=== PATIENT | male | born 1950 | race Caucasian/White ===

== ENCOUNTER → 2018-09-26 | Outpatient (CLI) | payer BC ==
[~2018-09-26] MED LIST: IOPAMIDOL 370 MG/ML 200 ML INFUS..BTL INJ ONE; SODIUM CHLORIDE 0.9% 50ML 50 ML ONE
[2018-09-26 14:09] LABS: BLOOD UREA NITROGEN 16 mg/dL (7-26); BUN/CREATININE RATIO 16 (6-25); CREATININE, SERUM 1.02 mg/dL (0.72-1.25); EST GLOMERULAR FILTRATION RATE > 60 ML/MIN (60-)
--- NOTE | 2018-09-26 15:03 | Diagnostic Imaging Report ---
EXAMINATION: CT of the chest with contrast, PE protocol. TECHNIQUE: Spiral CT images of the chest were performed from the lung apices through the level of the adrenal glands after the IV administration of 100 cc of [id number]. Thin section reconstructions were obtained with special concentration on the pulmonary arteries. COMPARISON: <none> CLINICAL HISTORY:Patient reports history of pulmonary embolus approximately 10 years prior, chest pain DISCUSSION: Vasculature: The main pulmonary artery, right and left pulmonary arteries, and their visualized lobar and segmental branches are patent, without filling defect. The pulmonary outflow tract is of normal caliber. There is no ectasia or aneurysmal dilatation of the thoracic aorta. Atherosclerotic calcifications of the left anterior descending coronary artery. Lungs: Calcified granuloma left upper lobe. Coarse juxtapleural linear and reticular opacities with cystic changes affecting the left upper lobe to the greatest extent. Associated groundglass opacities. 3 mm noncalcified solid nodule left lower lobe series 3 image 68. Trachea, mainstem bronchi, and central lobar and segmental bronchi are patent. Airways: As above. Pleura: <There is no evidence of pleural effusion or pneumothorax.> Heart and mediastinum: Visualized portions of the thyroid gland appear normal. No pericardial effusion. Calcified left hilar lymph nodes. Normal heart size. No axillary, hilar, or mediastinal lymphadenopathy. Abdomen: Visualized portions of the liver, spleen, pancreas, and adrenal glands are normal. Bones and soft tissues: Multilevel degenerative disc changes of the partially visualized lower cervical and thoracic spine. No osseous destructive lesions. Bilateral gynecomastia. IMPRESSION: No pulmonary embolus to the level of the segmental branch pulmonary arteries. Pulmonary findings most suggestive of nonspecific interstitial pneumonia (NSIP), which may be idiopathic, related to underlying collagen vascular disease, or drug toxicity. Evidence of prior granulomatous disease. 3 mm noncalcified left lower lobe nodule is likely a noncalcified granuloma though a follow-up CT scan of the chest in one year is suggested to document stability. Atherosclerotic vascular disease. Signed by: Dr. Lex Arias M.D. on 09/26/2018 2:59 PM
== END ==
LOC: CT 12:50
PROVIDERS: ATTEND Internal Medicine Interventional Cardiology
DX: R07.9 Chest pain, unspecified (principal); I70.8 Atherosclerosis of other arteries; Z86.711 Personal history of pulmonary embolism
CPT/HCPCS: 36415; 71260; 82565; 84520; Q9967

== ENCOUNTER → 2020-07-21 | Day surgery (SDC) | payer OTHER ==
[2020-07-21] VITALS (14 sets, daily range): BP systolic 77–144; BP diastolic 55–92
[~2020-07-21] MED LIST changes: +ALPRAZOLAM 0.5 MG TAB ONE; +BENICAR20 MG PO; +DIPHENHYDRAMINE HCL 25 MG CAP ONE; +FENTANYL CITRATE/PF 100MCG/2 ML INJ ONE; +HEPARIN SOD/SOD CHLORIDE 2,000 ML ONE; +HYDROCHLOROTHIA25 MG PO; +LIDOCAINE HCL 2% LOCAL 20 ML VIAL ONE; +MIDAZOLAM HCL 2 MG/2 ML VIAL ONE; +SODIUM CHLORIDE 0.9% 1000ML 1,000 ML ONE; -SODIUM CHLORIDE 0.9% 50ML 50 ML ONE; +SYMBICORT 16010.2 GM INH; +VERAPAMIL HCL 2.5 MG/ML 2 ML VIAL ONE; +XANAX0.5 MG PO; +XARELTO10 MG PO
[2020-07-21 12:33] LABS: BASOPHILS # (AUTO) 0.1 (0.0-0.1); EOSINOPHILS # (AUTO) 0.2 (0.0-0.4); EOSINOPHILS % 2.4 % (0.0-6.0); HEMATOCRIT 45.5 % (38.2-49.6); HEMOGLOBIN 14.7 g/dL (14.0-18.0); LYMPHOCYTES # (AUTO) 1.4 (1.0-3.2); LYMPHOCYTES % 18.5 % (18.0-39.1); MEAN CORPUSCULAR HEMOGLOBIN 31.1 pg (28-32); MEAN CORPUSCULAR HGB CONC 32.3 g/dL (31-35); MEAN CORPUSCULAR VOLUME 96.4 fL (81-99); MONOCYTES # (AUTO) 0.7 (0.2-0.8); MONOCYTES % 9.4 % (4.4-11.3); NEUTROPHILS % 68.4 % (38.7-80.0); PLATELET COUNT 274 x10e3/uL (140-360); RED BLOOD COUNT 4.72 x10e6/uL (4.3-5.7); RED CELL DISTRIBUTION WIDTH 13.5 % (11.7-14.4)
[2020-07-21 12:58] LABS: ALANINE AMINOTRANSFERASE 19 IU/L (0-55); ALBUMIN 3.7 g/dL (3.5-5.0); ALBUMIN/GLOBULIN RATIO 1.1 (0.8-2.0); ALKALINE PHOSPHATASE 59 IU/L (40-150); ANION GAP 14.1 mmol/L (8-16); BLOOD UREA NITROGEN 22 mg/dL (7-26); BUN/CREATININE RATIO 19 (6-25); CALCIUM 8.6 mg/dL (8.4-10.2); CARBON DIOXIDE 25 mmol/L (22-29); CHLORIDE 105 mmol/L (98-107); CREATININE, SERUM 1.18 mg/dL (0.72-1.25); EST GLOMERULAR FILTRATION RATE > 60 ML/MIN (60-); GLUCOSE 86 mg/dL (74-118); POTASSIUM 4.1 mmol/L (3.5-5.1); SODIUM 140 mmol/L (136-145)
== END | disposition home or self-care (01) ==
LOC: CATH LAB 11:25
PROVIDERS: ATTEND Internal Medicine Interventional Cardiology
DX: I25.118 Atherosclerotic heart disease of native coronary artery with other forms of angina pectoris (principal); I10 Essential (primary) hypertension; E78.49 Other hyperlipidemia; E66.9 Obesity, unspecified; Z20.822 Contact with and (suspected) exposure to COVID-19; Z79.02 Long term (current) use of antithrombotics/antiplatelets; Z79.82 Long term (current) use of aspirin; Z68.38 Body mass index [BMI] 38.0-38.9, adult; Z86.718 Personal history of other venous thrombosis and embolism; Z87.891 Personal history of nicotine dependence
CPT/HCPCS: 36415; 76937; 80053; 85025; 93458; C1887; J2001; J2250; J3010; J7030; Q9967; U0002; 93454; 99152; 99153